=== PATIENT | female | born 1950 | race Caucasian/White ===

== ENCOUNTER → 2017-10-01 | Outpatient (CLI) | payer BC, MEDICARE ==
[~2017-10-01] MED LIST: LISINOPRIL20 MG; SYNTHROID0.5 MG; VICODIN 500 MG-1 TAB PO; VITAMIN D5000 IU
[2017-10-01 10:05] LABS: PTH INTACT 43.4 pg/mL (18.5-88.0); VITAMIN D, 25-HYDROXY 41.2 ng/mL (30-100)
== END | disposition home or self-care (01) ==
LOC: LAB 07:42
PROVIDERS: Nurse Practitioner Family
DX: E83.51 Hypocalcemia (principal)

== ENCOUNTER → 2018-09-16 | Outpatient (CLI) | payer BC ==
--- NOTE | ~2018-09-16 | EKG ---
[place], [place] ELECTROCARDIOGRAM REPORT NAME: VANESA CHESTER UNIT #: [id number] ROOM: DOCTOR: EPIPHANY DRAFT REPORT BIRTHDATE: [birth year] [facility] Test Date: 2018-09-16 Test Time: 08:55:01 Pat Name: VANESA CHESTER Department: Room: Gender: F Purse Framer: : 1950 Requested By: URMILA CHRISTINA Order Number: [id number] Reading MD: Wolfgang Mir MD Measurements Intervals [place] Rate: 50 P: 49 WI: 169 QRS: 92 QRSD: 89 T: 82 QT: 469 QTc: 428 Interpretive Statements Sinus rhythm Probable inferior infarct, old Electronically Signed On 09-23-2018 4:00:36 PDT by Wolfgang Mir MD CM:EKGRPT:ELECTROCARDIOGRAM REPORT [id number] URMILA FERNANDEZ DRAFT REPORT URMILA CHRISTINA
[2018-09-16 08:31] LABS: BASO % 0.4 % (0.0-1.0); EOS # 0.2 10*3/uL (0.0-0.4); EOS % 2.1 % (1.0-4.0); HEMATOCRIT 43.7 % (37.0-47.0); LYMPH # 2.6 10*3/uL (1.3-4.4); LYMPH % 36.5 % (27.0-41.0); MEAN CELL VOLUME 90.9 fl (81.0-99.0); MEAN CORPUSCULAR HGB 29.1 pg (27.0-31.0); MEAN PLATELET VOLUME 10.4 fl (9.6-12.3); MONO # 0.5 10*3/uL (0.1-1.0); MONO % 7.4 % (3.0-9.0); NEUT # 3.8 10*3/uL (2.3-7.9); NEUT % 53.3 % (47.0-73.0); PLATELET COUNT AUTOMATED 216 10*3/uL (130-400); RED BLOOD COUNT 4.81 10*6/uL (4.10-5.10); RED CELL DISTRI WIDTH 12.8 % (0-14.5); WHITE BLOOD COUNT 7.1 10*3/uL (4.8-10.8)
[2018-09-16 09:02] LABS: ALBUMIN 3.7 gm/dl (3.1-4.5); BUN 11 mg/dl (7-24); CHLORIDE 107 mmol/L (98-107); CHOLESTEROL 221 mg/dL (<200); CREATININE 0.86 mg/dL (0.55-1.02); POTASSIUM 4.3 mmol/L (3.5-5.1); SGOT/AST 15 IU/L (3-35); SGPT/ALT 24 U/L (12-78); SODIUM 142 mmol/L (136-145); TRIGLYCERIDES 298 mg/dl (<150); VLDL CHOLESTEROL 60 mg/dL (6-40)
[2018-09-16 09:12] LABS: ALKALINE PHOSPHATASE 82 U/L (45-117); HDL CHOLESTEROL 36 mg/dl (40-60); LDL CHOLESTEROL 125 mg/dL (9-159); TOTAL PROTEIN 7.1 gm/dL (6.4-8.2)
== END | disposition home or self-care (01) ==
LOC: LAB 07:56
PROVIDERS: Nurse Practitioner Family
DX: M47.812 Spondylosis without myelopathy or radiculopathy, cervical region (principal); M48.02 Spinal stenosis, cervical region; R00.1 Bradycardia, unspecified; M25.511 Pain in right shoulder; I10 Essential (primary) hypertension; E03.9 Hypothyroidism, unspecified; E55.9 Vitamin D deficiency, unspecified; M85.89 Other specified disorders of bone density and structure, multiple sites